=== PATIENT | female | born 1995 | race African-American/Black ===

== ENCOUNTER 2017-07-01 03:33 | Emergency (ER) | payer OTHER ==
[~2017-07-01] VITALS: Ht 160 cm; Wt 54.5 kg
[~2017-07-01 03:33] MED LIST: ALLERGY MEDICINE; CLARITIN 1010 MG/TAB PO; LOESTRIN 1/20 28 DAY PO; MIDRIN 325 MG-11 CAP PO; MIGRAINE MEDICINE; NO HOME MEDICATIONS; ZYRTEC 10MG10 MG PO
[2017-07-01 03:38] VITALS: BP 141/77; TEMP 99.9
[2017-07-01 04:21] LABS: BASO % 0.3 % (0.0-2.0); GRAN # 5.9 (1.4-6.5); GRAN % 80.8 % (42.2-75.2); HEMATOCRIT 38.5 % (37.0-47.0); HEMOGLOBIN 12.8 g/dl (12.5-16.0); LYMPH # 1.1 (1.2-3.4); LYMPH % 15.5 % (20.0-51.0); MEAN CELL VOLUME 89 fl (80.0-100.0); MEAN CORPUSCULAR HEMOGLOBIN 29 pg (27.0-31.0); MEAN CORPUSCULAR HGB CONC 33 g/dl (33.0-37.0); MONO # 0.2 (0.1-0.6); PLATELET COUNT 291 K/mm3 (130-400); RED BLOOD COUNT 4.35 M/mm3 (4.10-5.30); REDCELL DISTRIBUTION WIDTH-CV 13.2 % (11.5-14.5)
[2017-07-01 04:31] LABS: ALANINE AMINOTRANSFERASE 25 U/L (9-52); ALBUMIN 4.4 gm/dL (3.5-5.0); ALKALINE PHOSPHATASE 83 U/L (50-136); ANION GAP 17 mmol/L (7-16); AST,SGOT 24 U/L (15-37); BILIRUBIN,TOTAL 0.2 mg/dL (0.0-1.0); BLOOD UREA NITROGEN 9 mg/dL (7-17); CALCIUM 9.2 mg/dL (8.4-10.2); CARBON DIOXIDE 23 mmol/L (22-30); CHLORIDE 102 mmol/L (98-107); CREATININE, serum 0.67 mg/dL (0.52-1.25); GLUCOSE 161 mg/dL (74-106); POTASSIUM 3.1 mmol/L (3.4-5.0); SODIUM 142 mmol/L (137-145); TOTAL PROTEIN 8.7 gm/dL (6.4-8.2)
[2017-07-01 04:35] LABS: TRICYCLIC ANTIDEPRESS URINE NEGATIVE
[2017-07-01 04:36] LABS: ACETAMINOPHEN < 10 ug/mL (10-30); ALCOHOL(ethanol),MEDICAL < 10 mg/dL; SALICYLATE < 1.0 mg/dL
[2017-07-01 05:00] VITALS: PULSE 90
== END 2017-07-01 05:02 | disposition home or self-care (01) ==
LOC: COL.ER 03:33
PROVIDERS: Emergency Medicine
DX: G47.00 Insomnia, unspecified (principal); F12.929 Cannabis use, unspecified with intoxication, unspecified; E87.6 Hypokalemia

== ENCOUNTER 2017-07-30 11:30 | Emergency (ER) | payer OTHER ==
[~2017-07-30] VITALS: Ht 162.6 cm; Wt 43.2 kg
[2017-07-30 12:03] LABS: BASO % 0.7 % (0.0-2.0); EOS # 0.2 (0.0-0.7); EOS % 4.5 % (0-4.0); GRAN # 1.3 (1.4-6.5); GRAN % 31.9 % (42.2-75.2); HEMATOCRIT 39.6 % (37.0-47.0); HEMOGLOBIN 13.1 g/dl (12.5-16.0); LYMPH # 2.1 (1.2-3.4); MEAN CELL VOLUME 88 fl (80.0-100.0); MEAN CORPUSCULAR HEMOGLOBIN 29 pg (27.0-31.0); MEAN CORPUSCULAR HGB CONC 33 g/dl (33.0-37.0); MEAN PLATELET VOLUME 10.2 fl (7.4-10.4); MONO # 0.4 (0.1-0.6); MONO % 9.7 % (1.7-9.3); PLATELET COUNT 260 K/mm3 (130-400); REDCELL DISTRIBUTION WIDTH-CV 12.5 % (11.5-14.5)
[2017-07-30 12:20] LABS: ALANINE AMINOTRANSFERASE 22 U/L (9-52); ALBUMIN 3.8 gm/dL (3.5-5.0); ALKALINE PHOSPHATASE 74 U/L (50-136); ANION GAP 17 mmol/L (7-16); AST,SGOT 22 U/L (15-37); BILIRUBIN,TOTAL 0.3 mg/dL (0.0-1.0); BLOOD UREA NITROGEN 8 mg/dL (7-17); CALCIUM 9.1 mg/dL (8.4-10.2); CARBON DIOXIDE 22 mmol/L (22-30); CHLORIDE 105 mmol/L (98-107); CREATININE, serum 0.72 mg/dL (0.52-1.25); GLUCOSE 86 mg/dL (74-106); POTASSIUM 3.8 mmol/L (3.4-5.0); SODIUM 144 mmol/L (137-145); TOTAL PROTEIN 7.6 gm/dL (6.4-8.2)
[2017-07-30 12:21] LABS: ACETAMINOPHEN < 10 ug/mL (10-30); ALCOHOL(ethanol),MEDICAL < 10 mg/dL; SALICYLATE < 1.0 mg/dL
[2017-07-30] MEDS ORDERED: MIDRIN 325 MG-11 CAP PO (12:31)
[2017-07-30 12:58] LABS: COLLECTION METHOD CLEAN CATCH
[2017-07-30 13:14] LABS: MUCOUS Present /lpf; PH 6 (5-8); SQUAMOUS EPITHELIAL 0-2 /hpf; URINE APPEARANCE Hazy; URINE BACTERIA None Seen /hpf; URINE BILIRUBIN Negative (NEGATIVE); URINE BLOOD Negative (NEGATIVE); URINE COLOR Yellow; URINE GLUCOSE Negative (NEGATIVE); URINE KETONE Negative (NEGATIVE); URINE LEUKOCYTE ESTERASE Negative (NEGATIVE); URINE NITRATE Negative (NEGATIVE); URINE PROTEIN(semi-quant) 2+ (NEGATIVE); URINE RBC 0-2 /hpf
[2017-07-30 13:19] LABS: TRICYCLIC ANTIDEPRESS URINE NEGATIVE
[2017-07-31 07:04] VITALS: TEMP 97.7
[2017-07-31 15:52] VITALS: BP 110/59; PULSE 71
== END 2017-07-31 15:53 ==
LOC: COL.ER 11:30
PROVIDERS: Emergency Medicine
DX: T50.902A Poisoning by unspecified drugs, medicaments and biological substances, intentional self-harm, initial encounter (principal); Y92.002 Bathroom of unspecified non-institutional (private) residence as the place of occurrence of the external cause